=== PATIENT | female | born 1970 | race African-American/Black ===

== ENCOUNTER 2021-09-26 13:33 | Inpatient (IN) | payer SELFPAY ==
[~2021-09-26] VITALS: Ht 165.1 cm; Wt 140.6 kg
[2021-09-26 14:31] LABS: BASOPHILS % 0.4 % (0.0-1.0); EOSINOPHILS # (AUTO) 0.1 (0.0-0.4); HEMATOCRIT 25.4 % (34.2-44.1); LYMPHOCYTES # (AUTO) 2.2 (1.0-3.2); LYMPHOCYTES % 30.1 % (18.0-39.1); MEAN CORPUSCULAR HEMOGLOBIN 15.2 pg (28-32); MEAN CORPUSCULAR HGB CONC 24.8 g/dL (31-35); MEAN CORPUSCULAR VOLUME 61.4 fL (81-99); MONOCYTES # (AUTO) 0.5 (0.2-0.8); MONOCYTES % 7.4 % (4.4-11.3); NEUTROPHILS # (AUTO) 4.5 (2.1-6.9); NEUTROPHILS % 60.7 % (38.7-80.0); PLATELET COUNT 500 x10e3/uL (140-360); RED BLOOD COUNT 4.14 x10e6/uL (3.6-5.1); RED CELL DISTRIBUTION WIDTH 21.2 % (11.7-14.4)
[2021-09-26 14:39] LABS: HEMOGLOBIN 6.3 g/dL (12.0-16.0)
[2021-09-26] MEDS ORDERED: SODIUM CHLORIDE 0.9% 250ML 250 ML IV ONE (15:00)
[2021-09-26 15:01] LABS: ALBUMIN 3.3 g/dL (3.5-5.0); ALBUMIN/GLOBULIN RATIO 0.7 (0.8-2.0); ALKALINE PHOSPHATASE 39 IU/L (40-150); ANION GAP 9.5 mmol/L (8-16); BLOOD UREA NITROGEN 11 mg/dL (7-26); BUN/CREATININE RATIO 16 (6-25); CALCIUM 8.5 mg/dL (8.4-10.2); CARBON DIOXIDE 27 mmol/L (22-29); CHLORIDE 105 mmol/L (98-107); GLUCOSE 102 mg/dL (74-118); POTASSIUM 3.5 mmol/L (3.5-5.1); SODIUM 138 mmol/L (136-145)
[2021-09-26 15:03] LABS: ALANINE AMINOTRANSFERASE < 6 IU/L (0-55)
[2021-09-26] MEDS ORDERED: Morphine 4mg INJECTION 4 MG/ML INJ IV ONE (16:15)
[2021-09-26] MEDS ORDERED: HYDRALAZINE HCL 20 MG/ML VIAL IV PRN ×2 (18:30→21:30)
[2021-09-26] MEDS ORDERED: VALSARTAN-HCTZ1 EAC1 (18:39)
[2021-09-26] MEDS: VALSARTAN 160 MG TAB PO SCH (18:42)
[2021-09-26] MEDS: HYDROCHLOROTHIAZIDE 25 MG TAB PO SCH (18:42)
[2021-09-26 19:42] VITALS: BP 206/98
[2021-09-26 20:00] VITALS: BP 189/78
[2021-09-26] MEDS: CARVEDILOL 12.5 MG TAB PO SCH (21:41)
[2021-09-26] MEDS: ONDANSETRON HCL INJ 2MG/ML 2ML 2 MG/ML VIAL IV PRN (21:41)
[2021-09-26] MEDS: Morphine 4mg INJECTION 4 MG/ML INJ IV PRN (21:42)
[2021-09-26 21:46] LABS: CHOL/HDL RATIO 2.6 (3.0-3.6)
[2021-09-27] VITALS (8 sets, daily range): BP systolic 116–152; BP diastolic 61–85
[2021-09-27] MEDS ORDERED: SODIUM CHLORIDE 0.9% 250ML 250 ML ONE ×2 (01:18→12:14)
[2021-09-27] MEDS: Morphine 4mg INJECTION 4 MG/ML INJ IV PRN ×4 (05:28→22:21)
[2021-09-27] MEDS: ONDANSETRON HCL INJ 2MG/ML 2ML 2 MG/ML VIAL IV PRN (05:28)
[2021-09-27] MEDS ORDERED: IOPAMIDOL 370 MG/ML 100 ML INFUS..BTL INJ ONE ×2 (05:42→20:26)
[2021-09-27 07:05] LABS: BASOPHILS % 0.6 % (0.0-1.0); EOSINOPHILS # (AUTO) 0.1 (0.0-0.4); EOSINOPHILS % 1.1 % (0.0-6.0); HEMATOCRIT 26.7 % (34.2-44.1); LYMPHOCYTES % 31.6 % (18.0-39.1); MEAN CORPUSCULAR HEMOGLOBIN 16.2 pg (28-32); MEAN CORPUSCULAR HGB CONC 25.5 g/dL (31-35); MEAN CORPUSCULAR VOLUME 63.7 fL (81-99); MONOCYTES # (AUTO) 0.6 (0.2-0.8); MONOCYTES % 10.1 % (4.4-11.3); NEUTROPHILS # (AUTO) 3.5 (2.1-6.9); NEUTROPHILS % 56.3 % (38.7-80.0); PLATELET COUNT 463 x10e3/uL (140-360); RED BLOOD COUNT 4.19 x10e6/uL (3.6-5.1); RED CELL DISTRIBUTION WIDTH 23.3 % (11.7-14.4)
[2021-09-27 07:15] LABS: HEMOGLOBIN 6.8 g/dL (12.0-16.0)
[2021-09-27 07:23] LABS: ANION GAP 10.8 mmol/L (8-16); CALCIUM 8.5 mg/dL (8.4-10.2); CREATININE, SERUM 0.78 mg/dL (0.57-1.11); POTASSIUM 3.8 mmol/L (3.5-5.1)
[2021-09-27] MEDS ORDERED: SODIUM CHLORIDE 0.9% 250ML 250 ML IV ONE (07:45)
[2021-09-27] MEDS ORDERED: PREDNISONE 20 MG TAB PO ONE ×4 (08:00→19:45)
[2021-09-27 08:32] LABS: ANISOCYTOSIS MODERATE; EOSINOPHILS % (MANUAL) 2 % (0-7); LYMPHOCYTES % (MANUAL) 22 % (19-48); MONOCYTES % (MANUAL) 11 % (3.4-9.0); NEUTROPHILS % (MANUAL) 65 % (40-74); PLATELET ESTIMATE ADEQUATE; PLATELET MORPHOLOGY COMMENT NORMAL; RBC MORPHOLOGY COMMENT ABNORMAL
[2021-09-27 08:33] LABS: ELLIPTOCYTE, RBC SLIGHT; OVALOCYTES FEW; POIKILOCYTOSIS MODERATE
[2021-09-27] MEDS: FUROSEMIDE INJ 10 MG/ML 2 ML VIAL IV SCH ×2 (09:00→18:01)
[2021-09-27] MEDS: VALSARTAN 160 MG TAB PO SCH (09:01)
[2021-09-27] MEDS: HYDROCHLOROTHIAZIDE 25 MG TAB PO SCH (09:02)
[2021-09-27] MEDS: CARVEDILOL 12.5 MG TAB PO SCH ×2 (09:03→17:10)
[2021-09-27] MEDS: ASPIRIN 81 MG CHEW TAB PO SCH (09:03)
[2021-09-27] MEDS ORDERED: DIPHENHYDRAMINE HCL 25 MG CAP PO ONE (19:00)
[2021-09-28] VITALS: BP 148/75
[2021-09-28 04:00] VITALS: BP 147/80
[2021-09-28 05:29] LABS: BASOPHILS % 0.1 % (0.0-1.0); HEMATOCRIT 32.4 % (34.2-44.1); LYMPHOCYTES # (AUTO) 1.2 (1.0-3.2); LYMPHOCYTES % 9.6 % (18.0-39.1); MEAN CORPUSCULAR HEMOGLOBIN 17.7 pg (28-32); MEAN CORPUSCULAR HGB CONC 27.8 g/dL (31-35); MEAN CORPUSCULAR VOLUME 63.7 fL (81-99); MONOCYTES # (AUTO) 0.4 (0.2-0.8); MONOCYTES % 2.8 % (4.4-11.3); NEUTROPHILS % 86.8 % (38.7-80.0); PLATELET COUNT 545 x10e3/uL (140-360); RED BLOOD COUNT 5.09 x10e6/uL (3.6-5.1); RED CELL DISTRIBUTION WIDTH 26.2 % (11.7-14.4)
[2021-09-28 05:53] LABS: ANION GAP 14.7 mmol/L (8-16); CALCIUM 8.7 mg/dL (8.4-10.2); CREATININE, SERUM 0.84 mg/dL (0.57-1.11); POTASSIUM 3.7 mmol/L (3.5-5.1)
[2021-09-28] MEDS: FUROSEMIDE INJ 10 MG/ML 2 ML VIAL IV SCH (06:15)
[2021-09-28] MEDS: Morphine 4mg INJECTION 4 MG/ML INJ IV PRN ×2 (06:20→11:25)
[2021-09-28 08:05] LABS: ANISOCYTOSIS MODERATE; HYPOCHROMASIA MARKED; MICROCYTOSIS MARKED; OVALOCYTES FEW; PLATELET ESTIMATE ADEQUATE; PLATELET MORPHOLOGY COMMENT FEW LARGE; POLYCHROMASIA FEW; RBC MORPHOLOGY COMMENT ABNORMAL; TARGET CELLS FEW
[2021-09-28 08:21] VITALS: BP 161/84
[2021-09-28] MEDS: VALSARTAN 160 MG TAB PO SCH (08:30)
[2021-09-28] MEDS: ASPIRIN 81 MG CHEW TAB PO SCH (08:48)
[2021-09-28] MEDS: HYDROCHLOROTHIAZIDE 25 MG TAB PO SCH (08:49)
[2021-09-28] MEDS: CARVEDILOL 12.5 MG TAB PO SCH (08:51)
[2021-09-28 09:05] VITALS: BP 161/84
[2021-09-28] MEDS ORDERED: COREG12.5 MG PO (09:57)
[2021-09-28] MEDS ORDERED: ASPIRIN CHEW81 MG PO (09:57)
[2021-09-28] MEDS ORDERED: CYCLOBENZAPRINE5 MG PO (10:12)
[2021-09-28] MEDS ORDERED: TEMAZEPAM15 MG PO ×2 (10:14→20:07)
[2021-09-28] MEDS ORDERED: ESIDRIX25 MG PO (10:14)
[2021-09-28] MEDS ORDERED: DIOVAN160 MG PO (10:14)
[2021-09-28] MEDS ORDERED: DIPHENHYDRAMINE HCL 25 MG CAP PO ONE (11:00)
[2021-09-28 11:41] VITALS: BP 168/88
[2021-09-28] MEDS ORDERED: ONDANSETRON HCL 4 MG ORAL DISINTEGRATING TAB PO PRN (12:15)
[2021-09-28] MEDS ORDERED: SODIUM FERRIC GLUCONATE COMPLX 125 MG in SODIUM CHLORIDE 0.9% 100 ML IV SCH (12:30)
[2021-09-28 13:08] LABS: % IRON SATURATION 5 % (15-50); IRON 19 ug/dL (50-170); TOTAL IRON BINDING CAPACITY 421 ug/dL (261-478); TRANSFERRIN 301 mg/dL (180-382)
[2021-09-28] MEDS ORDERED: PANTOPRAZOLE SOD 40 MG TABEC PO SCH (16:30)
[2021-09-28] MEDS ORDERED: FUROSEMIDE 20 MG TAB PO SCH (18:00)
== END 2021-09-28 14:33 | disposition home or self-care (01) | DRG 812 ==
LOC: ER 13:49 → MED/SURG2 15:40
PROVIDERS: ADMIT Internal Medicine; ATTEND Internal Medicine
PROC: 30233N1 Transfusion of Nonautologous Red Blood Cells into Peripheral Vein, Percutaneous Approach (ICD-10-PCS; principal; 2021-09-27)
DX: D62 Acute posthemorrhagic anemia (principal); Z68.43 Body mass index [BMI] 50.0-59.9, adult; I16.0 Hypertensive urgency; I10 Essential (primary) hypertension; Z90.49 Acquired absence of other specified parts of digestive tract; R09.89 Other specified symptoms and signs involving the circulatory and respiratory systems; E66.01 Morbid (severe) obesity due to excess calories; G47.33 Obstructive sleep apnea (adult) (pediatric); N93.8 Other specified abnormal uterine and vaginal bleeding; R07.89 Other chest pain; Z20.822 Contact with and (suspected) exposure to COVID-19
CPT/HCPCS: 36415; 71045; 71260; 80048; 80053; 80061; 82607; 83540; 83690; 83880; 84466; 84484; 85025; 86850; 86900; 86920; 93005; 93306; 94799; 99251; 99284; J0360; J1940; J2270; J2405; J2916; J7050; J7512; P9016; Q9967

== ENCOUNTER 2022-04-08 14:24 | Emergency (ER) | payer SELFPAY ==
[~2022-04-08] VITALS: Ht 167.6 cm; Wt 148.8 kg
[~2022-04-08 14:24] MED LIST: ASPIRIN CHEW81 MG PO; COREG12.5 MG PO; CYCLOBENZAPRINE5 MG PO; DIOVAN160 MG PO; ESIDRIX25 MG PO; TEMAZEPAM15 MG PO; VALSARTAN-HCTZ1 EAC1
[2022-04-08] MEDS ORDERED: HYDRALAZINE HCL 20 MG/ML VIAL IV PRN (15:00)
[2022-04-08 15:17] LABS: BASOPHILS % 0.4 % (0.0-1.0); EOSINOPHILS # (AUTO) 0.1 (0.0-0.4); EOSINOPHILS % 1.5 % (0.0-6.0); HEMATOCRIT 29.3 % (34.2-44.1); HEMOGLOBIN 7.6 g/dL (12.0-16.0); LYMPHOCYTES # (AUTO) 2.3 (1.0-3.2); LYMPHOCYTES % 28.2 % (18.0-39.1); MEAN CORPUSCULAR HEMOGLOBIN 16.8 pg (28-32); MEAN CORPUSCULAR HGB CONC 25.9 g/dL (31-35); MEAN CORPUSCULAR VOLUME 64.7 fL (81-99); MONOCYTES # (AUTO) 0.6 (0.2-0.8); MONOCYTES % 7.2 % (4.4-11.3); NEUTROPHILS # (AUTO) 5.1 (2.1-6.9); NEUTROPHILS % 62.2 % (38.7-80.0); PLATELET COUNT 448 x10e3/uL (140-360); RED BLOOD COUNT 4.53 x10e6/uL (3.6-5.1); RED CELL DISTRIBUTION WIDTH 19.9 % (11.7-14.4)
[2022-04-08] MEDS ORDERED: KETOROLAC TROMETHAMINE 30 MG/ML VIAL IV STA ×2 (15:37)
[2022-04-08 15:41] LABS: ALBUMIN 3.3 g/dL (3.5-5.0); ALBUMIN/GLOBULIN RATIO 0.6 (0.8-2.0); ANION GAP 13.4 mmol/L (8-16); CREATININE, SERUM 0.73 mg/dL (0.57-1.11); POTASSIUM 3.4 mmol/L (3.5-5.1)
[2022-04-08] MEDS ORDERED: HYDROCODONE/APAP 5MG-325MG TAB PO ONE (19:00)
[2022-04-09] MEDS ORDERED: ASPIRIN 325 MG TAB PO SCH (09:00)
== END 2022-04-08 19:28 | disposition other institution (70) ==
LOC: ER 14:27
DX: R07.9 Chest pain, unspecified (principal); I10 Essential (primary) hypertension; D64.9 Anemia, unspecified; R94.31 Abnormal electrocardiogram [ECG] [EKG]; Z20.822 Contact with and (suspected) exposure to COVID-19
CPT/HCPCS: 36415; 71045; 80053; 83880; 84484; 85025; 93005; 99284; J0360; J1885; U0002